=== PATIENT | male | born 1990 | race Caucasian/White ===

== ENCOUNTER 2023-10-29 17:29 | Emergency (ER) | payer OTHER, SELFPAY ==
[2023-10-29 17:42] VITALS: BP 130/89; PULSE 98; RESP 16; TEMP 36.9; O2SAT 99
[2023-10-29 17:48] VITALS: BP 130/89; PULSE 98; RESP 16; TEMP 36.9; O2SAT 99
--- NOTE | 2023-10-29 18:06 | ED.SKABFB ---
HPI - Skin/Abscess/Foreign Bdy General Chief complaint: Skin/Abscess/Foreign Body Stated complaint: skin rash Time Seen by Provider: 10/29/23 18:03 Source: patient and RN notes reviewed Mode of arrival: ambulatory Limitations: no limitations History of Present Illness HPI narrative: Patient presents today complaining of a one-week history of pruritic rash. Started out small that has spread to the bilateral upper and lower extremities as well as the chest, abdomen, and neck. He has been using calamine lotion without relief. Rash started after doing some landscaping. Related Data Allergies Allergy/AdvReac Type Severity Reaction Status Date / Time No Known Allergies Allergy Verified 10/29/23 17:47 Review of Systems Review of Systems: CONSTITUTIONAL: Denies body aches, fever, chills, or sweats. EYES: Denies visual changes, redness, or discharge. ENT: Denies rhinorrhea, congestion, sore throat, or otalgia. CARDIOVASCULAR: Denies chest pain, palpitations, or edema. RESPIRATORY: Denies cough or dyspnea. GASTROINTESTINAL: Denies abdominal pain, nausea, vomiting, or diarrhea. GENITOURINARY: Denies dysuria or hematuria. SKIN: Pruritic rash MUSCULOSKELETAL: Denies back pain, joint pain, or myalgia. NEUROLOGIC: Denies headache, numbness, tingling, or weakness. PSYCH: Denies depression or anxiety. PMFSH Comments At time of signature, I have reviewed and agree with nursing past medical, surgical, social and family history unless otherwise noted. Please see nursing chart for further information. There is no relevant family history pertinent to the presenting complaint Exam Narrative: GENERAL: Well-appearing, well-nourished, and in no acute distress. HEAD: Normocephalic, atraumatic. EYES: EOMI. No redness or drainage. Conjunctivae normal. ENT: Mucous membranes pink and moist. NECK: Normal AROM. CHEST: No respiratory distress. EXTREMITIES: Normal range of motion. No edema. SKIN: Warm, dry. Capillary refill normal. Normal skin turgor. Erythematous maculopapular rash spread diffusely over all 4 extremities, chest and abdomen, and the anterior neck. No signs of infection. NEURO: No focal deficits. Alert and oriented x3. Gait steady. PSYCH: Normal affect. No signs of depression or anxiety. Course Course Level of Care: Express Care Visit Vital Signs Vital signs: Vital Signs Temperature 98.4 F 10/29/23 17:42 Pulse Rate 98 10/29/23 17:42 Respiratory Rate 16 10/29/23 17:42 Blood Pressure 130/89 10/29/23 17:42 Pulse Oximetry 99 10/29/23 17:42 Oxygen Delivery Room Air 10/29/23 17:42 Temperature 98.4 F 10/29/23 17:48 Pulse Rate 98 10/29/23 17:48 Respiratory Rate 16 10/29/23 17:48 Blood Pressure 130/89 10/29/23 17:48 Pulse Oximetry 99 10/29/23 17:48 Oxygen Delivery Room Air 10/29/23 17:48 Reviewed MDM - Skin/Abscess/Foreign Bdy MDM Narrative Medical decision making narrative: Exam is consistent with a contact dermatitis, likely poison lynda. He will be treated with a longer course of prednisone and tapering fashion. Discussed antihistamine use for itching as well. Anticipatory guidance given. Differential Diagnosis Differential diagnosis: Likely abscess of skin or subcutaneous tissue, viral exanthem, urticaria, cellulitis, impetigo and contact dermatitis Critical Care Time Critical Care Time Critical Care Time: No Discharge Plan Discharge Clinical Impression: Poison lynda dermatitis Patient Disposition: Home, Self-Care Condition: Stable Instructions: Poison Lynda (ED) Additional Instructions: Please take the prednisone as directed. Start an antihistamine such as Zyrtec, Claritin, or Ирина to help with itching. Follow-up with your PCP with any additional concerns. Your blood pressure was elevated above 120/80 today at Urgent Care. This puts you above the threshold for follow up. Please schedule a followup visit with your personal physician as guy
== END 2023-10-29 18:11 | disposition home or self-care (01) ==
PROVIDERS: Emergency Provider Nurse Practitioner
DX: L23.7 Allergic contact dermatitis due to plants, except food (principal)
CPT/HCPCS: 99203; G0463